=== PATIENT | male | born 1990 | race Caucasian/White ===

== ENCOUNTER 2023-03-15 02:01 | Emergency (ER) | payer OTHER, SELFPAY ==
--- NOTE | 2023-03-15 02:07 | ED_ITS ---
HPI - General Adult General Chief complaint: General Medical Stated complaint: General Malaise/ Nausea Time Seen by Provider: 03/15/23 02:06 Source: patient Mode of arrival: ambulatory Limitations: no limitations History of Present Illness HPI narrative: Patient has a substance abuse been walking about 6 miles in heat felt dizzy exhausted did not drink much water slightly nausea was given 4 mg Zofran by EMS feeling much better now taking p.o. fluid had body aches now feeling much better no confusion or headache patient started on Zoloft and has less appetite did not eat much all day Related Data Previous Rx's Medication Instructions Recorded ondansetron 4 mg disintegrating 4 mg PO Q6-8H PRN nausea and 03/15/23 tablet vomiting #7 tabs Allergies Allergy/AdvReac Type Severity Reaction Status Date / Time sulfamethoxazole Allergy Unknown HIVES Unverified 07/03/20 16:42 [From BACTRIM] trimethoprim [From BACTRIM] Allergy Unknown HIVES Unverified 07/03/20 16:42 Review of Systems Review of Systems: Yes all other systems are reviewed and are negative [facility] Social History Social History Alcohol intake: former Smoked in Last 30 Days: Yes Use of substances other than those prescribed or required for medical reasons: No Advance Directives: No Advance Directives Information Provided: Yes Physical Exam ED Vital Signs: Vital Signs - 24 hr 03/15/23 02:09 Temperature 97.9 F Pulse Rate 78 Respiratory Rate 15 Blood Pressure 114/85 Pulse Oximetry 98 Oxygen Delivery Method Room Air BMI result Body Mass Index 27.2 Appearance: Alert. Oriented X3. No acute distress. Eyes: PERRLA, No Nystagmus ENT: Pharynx normal. Oral Mucosa moist Neck: Normal inspection. Neck supple. CVS: Normal heart rate and rhythm. Pulses normal. Respiratory: No respiratory distress. Equal air entry bilateral, no wheezing/rales/rhonchi Abdomen: Soft and nontender. Bowel sounds are present, no mass palpable, no CVA tenderness Skin: Skin warm and dry. Normal skin color. Normal skin turgor. Extremities: No lower extremity edema. No calf tenderness Neuro: Oriented X 3. No motor deficit. No sensory deficit.No cerebellar signs , cranial nerves II-XII intact Medical Decision Making Medical Decision Making MDM Narrative: Patient with mild heat exhaustion taking p.o. fluids in the ER feeling much better after Zofran. Will discharge patient home Discharge Plan Discharge Clinical Impression: Heat exhaustion Patient Disposition: Home, Self-Care Instructions: Heat Exhaustion (ED) Additional Instructions: Drink plenty of fluids Stay in shaded area Prescriptions: New ondansetron 4 mg tablet,disintegrating 4 mg PO Q6-8H PRN (Reason: nausea and vomiting) Qty: 7 0RF Interventions: ED Discharge Assessment Last Done: 03/15/23 02:33 Discharge Date/Time: 03/15/23 02:37
[2023-03-15 02:09] VITALS: BP 114/85; BP 140/70; PULSE 78; PULSE 80; RESP 15; TEMP 36.6; O2SAT 96; O2SAT 98; BMI 27.2
== END 2023-03-15 02:37 | disposition home or self-care (01) ==
LOC: HO.ED 02:36
PROVIDERS: Emergency Provider Internal Medicine
DX: T67.5XXA Heat exhaustion, unspecified, initial encounter (principal); X58.XXXA Exposure to other specified factors, initial encounter; Y93.01 Activity, walking, marching and hiking; Y92.480 Sidewalk as the place of occurrence of the external cause; Y99.9 Unspecified external cause status
CPT/HCPCS: 99283; 99284

== ENCOUNTER 2025-03-20 13:09 | Emergency (ER) | payer MEDICAID, SELFPAY ==
[2025-03-20 13:30] VITALS: BP 147/91; PULSE 114; RESP 16; TEMP 36.8; O2SAT 97; BMI 24.1
--- NOTE | 2025-03-20 13:32 | ED_ITS ---
HPI - General Adult General Chief complaint: Skin/Abscess/Foreign Body Stated complaint: Infection Above Upper Lip Time Seen by Provider: 03/20/25 14:32 Source: patient Mode of arrival: ambulatory Limitations: no limitations History of Present Illness ED Provider: Kendra Mahajan PA-C HPI narrative: Patient is a 34 year old assigned male at with a history of IVDA presenting to the emergency department today with multiple lesions on his skin. Patient states that he used a cheap razor 3 days ago to shave his legs, arms, face, and lower abdomen and then all of these scabs / lumps appeared on his body. Patient states that he does still use IV drugs with last use today. Patient denies any dizziness, lightheadedness, abdominal pain, nausea, vomiting, fever, chills, blurry vision, double vision, loss of vision, chest pain, difficulty breathing, shortness of breath, back pain, night sweats, pain with urination, increased urinary frequency, increased urinary urgency, blood in his urine or stool, syncope or a near syncopal episode, recent trauma or falls, bowel incontinence, bladder incontinence, or any other complaints at this time. Onset (ago): day(s) (3) Relieving factors: none Exacerbating factors: none Treatments prior to arrival: none Related Data Previous Rx's ?Medication ?Instructions ?Recorded ondansetron 4 mg disintegrating 4 mg PO Q6-8H PRN nausea and 03/15/23 tablet vomiting #7 tabs cephalexin 500 mg capsule 500 mg PO Q6H 7 days #28 caps 03/20/25 doxycycline hyclate 100 mg tablet 100 mg PO BID 7 days #14 tabs 03/20/25 Allergies Allergy/AdvReac Type Severity Reaction Status Date / Time sulfamethoxazole Allergy Unknown HIVES Verified 03/20/25 13:31 [From BACTRIM] trimethoprim [From BACTRIM] Allergy Unknown HIVES Verified 03/20/25 13:31 Review of Systems 2 Constitutional: Constitutional: Reports no additional constitutional complaints, Denies chills, Denies fever(s) and Denies night sweats Eyes: Eyes: Reports no additional eye complaints, Denies blurry vision, Denies change in vision, Denies diplopia, Denies eye discharge, Denies loss of vision and Denies eye pain ENT: Denies dizziness Cardiovascular: Cardiovascular: Reports no additional cardiovascular complaints, Denies chest pain, Denies lightheadedness, Denies Loss of Consciousness and Denies dyspnea Respiratory: Respiratory: Reports no additional respiratory complaints and Denies dyspnea Gastrointestinal: Gastrointestinal: Reports no additional gastrointestinal complaints, Denies abdominal pain, Denies melena, Denies hematochezia, Denies change in bowel habits and Denies change in stool character Genitourinary: Genitourinary: Reports no additional male genitourinary complaints, Denies hematuria, Denies oliguria, Denies difficulty urinating, Denies dysuria, Denies urinary frequency, Denies urinary hesitancy, Denies urinary incontinence and Denies urinary urgency Musculoskeletal: Musculoskeletal: Reports no additional musculoskeletal complaints, Denies numbness and Denies tingling Integumentary/Breasts: Comments: lesions to the face, arms, lower abdomen, and legs Neurologic: Denies dizziness, Denies loss of vision, Denies numbness and Denies tingling Psychiatric: Psychiatric: Reports no additional psychiatric complaints Endocrine: Endocrine: Reports no additional endocrine complaints Hematologic/Lymphatic: Hematologic/Lymphatic: Reports no additional hematologic/lymphatic complaints Allergic/Immunologic: Allergic/Immunologic: Reports no additional allergic/immunologic complaints PMFSH Past Medical History Attestation statement: The following information was validated with the patient. Source: old records reviewed and nursing notes reviewed Social History Social History Alcohol intake: former Advance Directives: No Advance Directives Information Provided: Yes Physical Exam ED Vital Signs: Vital Signs - 24 hr 03/20/25 13:30 03/20/25 15:05 Temperature 98.3 F 98.3 F Pulse Rate 114 H 110 H Respiratory Rate 16 16 Blood Pressure 147/91 H 147/91 H Pulse Oximetry 97 97 Oxygen Delivery Method Room Air Room Air BMI result Body Mass Index 24.1 Const General: cooperative, no acute distress, alert and awake Nutritional Appearance: well nourished Orientation/consciousness: patient oriented x3 HENMT Head: Yes normal to inspection and Yes atraumatic Ears: hearing grossly normal bilaterally and external ears normal General nose exam: Normal external nose present, no nasal discharge noted and no epistaxis Face and sinus: No abrasion and No laceration Mouth: Normal oral and palatal mucosa present, no drooling and no muffled voice Eyes General: appearance normal, both eyes and all related structures Periorbital: periorbital findings normal Eyelids: Yes eyelids normal Conjunctivae: conjunctivae normal Pupils: Equal, round and reactive pupils present EOM: EOMs intact bilaterally Neck Neck: Yes normal visual inspection, Yes full ROM and Yes no lymphadenopathy Resp Effort & Inspection: normal respiratory effort and able to speak in complete sentences Skin Other: Neuro General: patient oriented x3, moves all extremities and CN's II-XI intact bilaterally Cranial nerves: Yes Equal, round and reactive pupils present Cognition (Neuro): normal cognition Extrem General: Yes full ROM and Yes capillary refill normal Psych Appearance: grossly normal Mental Status: mental status grossly normal Affect: normal affect Attitude: cooperative Thought process: Normal thought process present Thought content: Normal thought content present Insight: Good insight present (Psych) Course Course Course Narrative: 03/20/25 [id number] BHARTI Lizarraga This is a Rapid Medical Examination (RME) performed by Marta Theodore PA-C in triage. Full HPI, ROS, assessment and treatment plan per primary provider in the Main ED. Hx: 34 yo M current IVDU (fentanyl) here w/ swelling to upper lip x3 days. reports shaving w/ a cheap razor, noted swelling redness to right upper lip. last injected fentanyl this morning. has not injected into this area. PE/vitals: multiple areas of follicultis to upper lip w/ assoc swelling, crusting. no obvious dental involvement. multiple areas of wounds consistent w/ skin picking to upper and lower extremities. Plan: labs/ inflammatory markers Medications Administered Discontinued Medications Generic Name Dose Route Start Last Admin Trade Name Buck PRN Reason Stop Dose Admin Cephalexin HCl 500 mg 03/20/25 14:43 03/20/25 15:00 Cephalexin 500 Mg Capsule PO 03/20/25 14:44 500 mg ONCE ONE Administration Doxycycline Monohydrate 100 mg 03/20/25 14:43 03/20/25 15:00 Doxycycline Monohydrate 100 Mg Capsule PO 03/20/25 14:44 100 mg ONCE ONE Administration Naloxone HCl 8 mg 03/20/25 14:50 03/20/25 14:59 Naloxone Hcl Nasal Take Home 4 Mg [place] NOSTRILALT 03/20/25 14:51 8 mg ONCE ONE Administration Medical Decision Making Medical Decision Making [facility] Narrative: Patient is a 34 year old assigned male at with a history of IVDA presenting to the emergency department today with multiple lesions on his skin. Patient's physical exam showed numerous lesions concerning for cellulitis and MRSA. Patient's blood work showed an ESR of 34 with a CRP of 7.47. I explained my physical exam findings as well as all test results to the patient. I answered all questions asked by the patient. I explained to the patient that these lesions are concerning for MRSA and given his histroy of IVDU - he should be admitted to the hospital for continued monitoring and IV ABX. The patient stated that he had promised his daughter they were going to go get ice cream tonight and he can't miss it. Patient states that he recently got to be on speaking terms with her again and did not want to mess that up. Patient states that he had plans of getting placed into treatment and he'd like to come back for hospital admission and treatment help after he has this goodbye with his daughter. I explained to the patient that leaving against medical advice could result in , disability, decreased quality of life, and / or sepsis / worsening infection. Patient verbalized understanding of these risks and stated that he would like to sign out against medical advice anyway. Patient was given a dose of PO antibiotics while in the department and antibiotics were sent to his pharmacy. Patient was also supplied with a safe use kit, take home Narcan, and a booklet of resources for treatment centers. I explained to the patient that if he were to change his mind and heed my medical advice of hospital admission for IV ABX - he could call 911 or proceed to his nearest emergency department. Against medical advice document signed by the patient. Differential Diagnosis Differential Diagnoses: The differential diagnosis associated with the presentation includes MRSA Cellulitis Admission/Observation Consideration of admission/observation: Escalation of care including admission/observation considered Patient would have been admitted had he not signed out against medical advice as noted in the MDM Rationale portion of this note. Lab Data [facility] Lab Attestation statement: I reviewed the patient's lab results. My interpretation of these results are in the MDM Rationale portion of this note. 03/20/25 14:09 03/20/25 14:09 Labs: Lab Results 03/20/25 Range/Units 14:09 WBC 8.5 (4.8-10.8) X10*3/uL RBC 4.80 (4.60-5.80) X10*6/uL Hgb 13.1 L (14.0-18.0) g/dl Hct 38.7 L (42.0-52.0) % MCV 80.6 (80.0-98.0) fL MCH 27.3 (27.0-33.0) pg MCHC 33.9 (31.0-36.0) g/dl RDW 12.5 (11.0-16.0) % Plt Count 239 (160-400) X10*3/uL MPV 8.3 L (9.4-12.4) fL Immature Gran % (Auto) 0.4 (0.0-0.4) % Neut % (Auto) 76.3 H (45-73) % Lymph % (Auto) 14.4 L (20-40) % [place] % (Auto) 8.1 (2-11) % Eos % (Auto) 0.4 (0-4) % Baso % (Auto) 0.4 (0-2) % Lymph # (Auto) 1.2 (1.2-4.9) X10*3/uL [place] # (Auto) 0.7 (0.1-1.2) X10*3/uL Eos # (Auto) 0.0 (0.0-0.4) X10*3/uL Baso # (Auto) 0.0 (0.0-0.2) X10*3/uL Abs Immat Gran (auto) 0.03 (0.00-0.03) X10*3/uL Absolute Neuts (auto) 6.5 (2.0-8.3) x10*3/uL Absolute Nucleated RBC 0.000 (0.0-0.012) X10*3/uL Nucleated RBC % (auto) 0.0 (0.0-0.2) /100WBC Smear Tech's Comments VERIFIED ESR 34 H (0-15) MM/HR Sodium 136 (135-145) mmol/L Potassium 3.8 (3.3-5.1) mmol/L Chloride 103 (96-108) mmol/L Carbon Dioxide 26 (22-29) mmol/L Anion Gap 11 L (12-20) BUN 18 H (9-16) mg/dL Creatinine 0.81 (0.5-1.4) mg/dL Estim Creat Clear Calc 131.4 Estimated GFR > 60 Random Glucose 146 H (60-115) mg/dL Calcium 9.3 (8.4-10.2) mg/dL Magnesium 1.9 (1.6-2.6) mg/dL Total Bilirubin 0.5 (0.0-1.0) mg/dL AST 21 (5-37) U/L ALT 10 (0-40) U/L Alkaline Phosphatase 95 (39-117) U/L C-Reactive Protein 7.47 H (< or = 0.50) mg/dL Total Protein 7.8 (6.5-8.0) g/dL Albumin 4.0 (3.5-5.0) g/dL Prescription Management I considered prescription management with: Antibiotic (Patient prescribed antibiotic for probable MRSA cellulitis.) Discharge Plan Discharge Clinical Impression: Cellulitis Patient Disposition: Left Against Medical Advice Instructions: Cellulitis (ED) Additional Instructions: Your face, arms, legs, and abdomen have multiple wounds that are concerning for cellulitis and MRSA infection. Given this, your history of IV drug use, and your clinical presentation - I recommended you be admitted for IV antibiotics. Unfortunately, you have declined hospital admission at this time and are leaving against medical advice. I have provided you with your first dose of oral antibiotics and have prescribed them to your pharmacy of choice. Please re-consider your decision on hospital admission and call 911 or proceed to your closest emergency department. If you decide you want to stop or cut down on how much IV opiates you are using, you can call or walk into our outpatient Addiction Treatment office: [facility] (M-F 9am-5p) [address] [place] [address], [phone] You may have been provided with safer injection?items, please take time to take care of YOU and your health. Use new supplies whenever possible to lessen the chances of infections and other illnesses.? If you need more supplies, please go [employer],? [address] [place], [place] you can call or text to coordinate delivery of safer supplies. You were also provided a list of several treatment providers in the area.? If you experience any worsening symptoms you cannot control please return to the ED or call 911. Please follow up at your next appointment. Things to look out for are fevers, chest pain, shortness of breath, severe pain, dizziness, fainting or any other concerns. Prescriptions: New cephalexin 500 mg capsule 500 mg PO Q6H 7 Days Qty: 28 0RF doxycycline hyclate 100 mg tablet 100 mg PO BID 7 Days Qty: 14 0RF No Action ondansetron 4 mg tablet,disintegrating 4 mg PO Q6-8H PRN (Reason: nausea and vomiting) Qty: 7 0RF Referrals: [facility] Family Medicine [Provider Group] (Call to establish and follow up with a primary care provider. If you already have a primary care provider, please follow up with them.) [facility] Primary Care, [facility] [Provider Group] (Call to establish and follow up with a primary care provider. If you already have a primary care provider, please follow up with them.) [facility] [Provider Group] (Call to establish and follow up with a primary care provider. If you already have a primary care provider, please follow up with them.) [facility] Primary Care, [facility] [Provider Group] (Call to establish and follow up with a primary care provider. If you already have a primary care provider, please follow up with them.) [facility] [Provider Group] (Call to establish and follow up with a primary care provider. If you already have a primary care provider, please follow up with them.) Stand Alone Forms: Against Medical Advice Interventions: ED Discharge Assessment Last Done: 03/20/25 15:05 Discharge Date/Time: 03/20/25 15:05 Print Language: Kazakh
[2025-03-20 14:28] LABS: Basophils Percent Auto 0.4 % (0-2); Eosinophils Percent Auto 0.4 % (0-4); Hematocrit 38.7 % (42.0-52.0); Hemoglobin 13.1 g/dl (14.0-18.0); Imm Gran Abs Auto 0.03 X10*3/uL (0.00-0.03); Imm Gran Pct Auto 0.4 % (0.0-0.4); Lymphocytes Absolute Auto 1.2 X10*3/uL (1.2-4.9); Lymphocytes Percent Auto 14.4 % (20-40); MANUAL DIFF FLAG SCAN; Mean Corpuscular HGB Conc 33.9 g/dl (31.0-36.0); Mean Corpuscular Hemoglobin 27.3 pg (27.0-33.0); Mean Corpuscular Volume 80.6 fL (80.0-98.0); Mean Platelet Volume 8.3 fL (9.4-12.4); Monocytes Absolute Auto 0.7 X10*3/uL (0.1-1.2); Monocytes Percent Auto 8.1 % (2-11); Neutrophils Absolute Auto 6.5 x10*3/uL (2.0-8.3); Neutrophils Percent Auto 76.3 % (45-73); PLT CLUMP 1; Red Cell Distribution Width 12.5 % (11.0-16.0); SCAN SMEAR FLAG 1
[2025-03-20 14:35] LABS: Alanine Aminotransferase 10 U/L (0-40); Alkaline Phosphatase 95 U/L (39-117); Anion Gap 11 (12-20); Aspartate Amino Transferase 21 U/L (5-37); Bilirubin Total 0.5 mg/dL (0.0-1.0); Blood Urea Nitrogen 18 mg/dL (9-16); C Reactive Protein 7.47 mg/dL (< or = 0.50); Calcium 9.3 mg/dL (8.4-10.2); Carbon Dioxide 26 mmol/L (22-29); Chloride 103 mmol/L (96-108); Creatinine Clr Calc Pharmacy 131.4; Estimated Glomerular Filt Rate > 60; Glucose Random 146 mg/dL (60-115); Magnesium 1.9 mg/dL (1.6-2.6); Potassium 3.8 mmol/L (3.3-5.1); Sodium 136 mmol/L (135-145); Total Protein 7.8 g/dL (6.5-8.0)
[2025-03-20 14:44] LABS: Platelet Count 239 X10*3/uL (160-400); SLIDE REVIEW VERIFIED; White Blood Count 8.5 X10*3/uL (4.8-10.8)
[2025-03-20 14:54] LABS: Erythrocyte Sedimentation Rate 34 MM/HR (0-15)
[2025-03-20] MEDS: Naloxone HCl Nasal TAKE HOME 4 MG SPRAY 8 MG NOSTRILALT (14:59)
[2025-03-20] MEDS: cephALEXin 500 MG CAPSULE PO (15:00)
[2025-03-20] MEDS: Doxycycline Monohydrate 100 MG CAPSULE PO (15:00)
[2025-03-20 15:05] VITALS: BP 147/91; PULSE 110; RESP 16; TEMP 36.8; O2SAT 97
== END 2025-03-20 15:05 | disposition left against medical advice (07) ==
PROVIDERS: Physician Assistant Medical; Emergency Provider Emergency Medicine
DX: L98.9 Disorder of the skin and subcutaneous tissue, unspecified (principal); K13.0 Diseases of lips; L03.119 Cellulitis of unspecified part of limb; L03.116 Cellulitis of left lower limb; L03.115 Cellulitis of right lower limb; L03.311 Cellulitis of abdominal wall; Z53.29 Procedure and treatment not carried out because of patient's decision for other reasons
CPT/HCPCS: 36415; 80053; 83735; 85025; 85652; 86140; 99282; 99283

== ENCOUNTER 2025-03-20 23:06 | Inpatient (IN) | payer MEDICAID, SELFPAY ==
[2025-03-20 23:10] VITALS: BP 139/93; PULSE 93; RESP 20; TEMP 36.1; O2SAT 98; BMI 55.4
--- NOTE | 2025-03-21 03:34 | ED_ITS ---
HPI - General Adult General Chief complaint: Skin/Abscess/Foreign Body Stated complaint: left ama earlier and want's to be seen again. Time Seen by Provider: 03/21/25 02:00 Source: patient Mode of arrival: ambulatory Limitations: no limitations History of Present Illness ED Provider: Dr. Tori Lawrence HPI narrative: Patient comes to the emergency room requesting admission. Patient states that earlier today he was seen here, the previous provider told him that he need to be admitted, patient states that he had to take care of his young children at home and then came back to the emergency room as requested per previous provider. Patient denies any fever or chills. Patient admits that he injects heroin. Related Data Previous Rx's ?Medication ?Instructions ?Recorded ondansetron 4 mg disintegrating 4 mg PO Q6-8H PRN nausea and 03/15/23 tablet vomiting #7 tabs cephalexin 500 mg capsule 500 mg PO Q6H 7 days #28 caps 03/20/25 doxycycline hyclate 100 mg tablet 100 mg PO BID 7 days #14 tabs 03/20/25 Allergies Allergy/AdvReac Type Severity Reaction Status Date / Time sulfamethoxazole Allergy Unknown HIVES Verified 03/20/25 23:13 [From BACTRIM] trimethoprim [From BACTRIM] Allergy Unknown HIVES Verified 03/20/25 23:13 Review of Systems Review of Systems: Constitutional : No Weight loss, No Fever, No Chills, No Night Sweats, No Fatigue, No Malaise ENT/Mouth : No Hearing loss, No Ear Pain, No Nasal Congestion, No Sinus Pain, No Hoarseness, No sore throat, No Rhinorrhea, No Swallowing Difficulty Eyes: No Eye Pain, No Swelling, No Redness, No Foreign Body, No Discharge, No Vision Changes Cardiovascular : No Chest Pain, No SOB, No Dyspnea on Exertion, No Orthopnea, No Edema, No Palpitations Respiratory : No Cough, No Sputum, No Wheezing, No Smoke Exposure, No Dyspnea Gastrointestinal : No Nausea, No Vomiting, No Diarrhea, No Constipation, No abdominal Pain, No Hematochezia, No Melena Genitourinary : no irregular bleeding, No Dysuria, No Urinary Frequency, No Hematuria, No Urinary Incontinence, No Urgency, No Flank Pain, No Urinary Flow Changes, No Hesitancy Musculoskeletal : No joint pain, No Myalgias, No Joint Swelling Skin : Complaining of cellulitis on the left side of the face, chronic wounds in bilateral upper extremities from needle site injections Neuro : No Weakness, No Numbness, No Paresthesias, No Loss of Consciousness, No Dizziness, No Headache Psych : No Anxiety/Panic, No Depression, No SI/HI/AH/VH, No Social Issues, Heme/Lymph: No Bruising, No Bleeding,No Lymphadenopathy Endocrine : No Polyuria, No Polydipsia, No Temperature Intolerance [facility] Past Medical History Medical History (Updated 03/21/25 @ 03:37 by Tori Lawrence MD) Polysubstance abuse Social History Social History Alcohol intake: former Advance Directives: No Advance Directives Information Provided: Yes Do you have a plan to hurt others: No Plan Physical Exam ED Vital Signs: Vital Signs - 24 hr 03/20/25 23:10 Temperature 97.0 F Pulse Rate 93 Respiratory Rate 20 Blood Pressure 139/93 H Pulse Oximetry 98 Oxygen Delivery Method Room Air BMI result Body Mass Index 55.4 Const Other: Appearance: Alert. Oriented X3. No acute distress. Eyes: Pupils equal, round and reactive to light. ENT: Pharynx normal. Neck: Normal inspection. Neck supple. No lymph nodes noted. No crepitus CVS: Normal heart rate and rhythm. Pulses normal. Normal S1 and S2 Respiratory: No respiratory distress. Breath sounds normal. No Wheezing. No rales Abdomen: Soft and nontender. No rigidity. No distention. Skin: Patient has cellulitis in the face, see pictures from previous note from earlier today. Patient has bilateral needle track santos in both arms. Do not seem infected. Extremities: No lower extremity edema. No Lacerations. No Rash Neuro: Oriented X 3. No motor deficit. No sensory deficit. Moving all extremities. No slurred speech. CN 2 through 12 grossly intact Psych: calm, cooperative, normal affect Medical Decision Making Medical Decision Making MDM Narrative: At this time, it would not be of any benefit to repeat labs. It is borderline whether the patient should be admitted or not. Patient has been waiting 5 hours to be admitted. I discussed the patient with Dr. Odell, we will admit for IV antibiotics. Differential Diagnosis Differential Diagnoses: The differential diagnosis associated with the p resentation includes (Cellulitis, impetigo) Critical Care Time Critical Care Time Critical Care Time: Yes Total Critical Care Time: 45 Attestation: I have personally provided critical care time. Time includes review of lab data, radiology results, discussion with consultants, and monitoring for potential decompensation. Intervention performed as documented. Discharge Plan Discharge Clinical Impression: Cellulitis, Impetigo Patient Disposition: Admitted As Inpatient Prescriptions: No Action ondansetron 4 mg tablet,disintegrating 4 mg PO Q6-8H PRN (Reason: nausea and vomiting) Qty: 7 0RF cephalexin 500 mg capsule 500 mg PO Q6H 7 Days Qty: 28 0RF doxycycline hyclate 100 mg tablet 100 mg PO BID 7 Days Qty: 14 0RF Print Language: Iranian
[2025-03-21 03:37] VITALS: BMI 24.6
--- NOTE | 2025-03-21 03:39 | PM.IMHP ---
History of Present Illness Date of Service: 03/21/25 Attending physician on admission: Remy Odell Chief Complaint: folliculitis, cellulitis Patient is a 34-year-old male with a past medical history significant for IV drug use, who presented to the ED again after leaving yesterday against medical advice for cellulitis and possible abscess of the left upper lip. The patient reports recent IV drug use, last use 16:00 yesterday, and would like to talk to addiction Medicine team regarding detox/rehab. He reports scattered skin lesions with intermittent drainage and erythema for quite some time, the upper lip is somewhat new, and has had some drainage which occurred last night. the drainage was thin with some purulent white drainage as well. He reports some relief of pain going from an 8/10 to a 6/10 after the drainage occurred. He has intermittent subjective fevers and chills. He denies any history of MRSA. Review of Systems Constitutional: Constitutional: Reports chills, Denies fatigue and Reports fever(s) Eyes: Eyes: Denies change in vision and Denies photophobia ENT: Denies nasal congestion, Denies nasal discharge and Denies sore throat Cardiovascular: Cardiovascular: Denies chest pain, Denies syncope, Denies rapid heart rate, Denies leg edema, Denies lightheadedness and Denies dyspnea Respiratory: Respiratory: Denies cough, Denies dyspnea and Denies wheezing Gastrointestinal: Gastrointestinal: Denies abdominal pain, Denies diarrhea, Reports nausea and Denies vomiting Genitourinary: Genitourinary: Denies oliguria, Denies urinary frequency and Denies urinary urgency Integumentary/Breasts: Skin/Breast: Reports as per HPI Neurologic: Denies confusion and Denies syncope Psychiatric: Psychiatric: Denies confusion Endocrine: Endocrine: Denies fatigue Hematologic/Lymphatic: Hematologic/Lymphatic: Denies easy bleeding and Denies easy bruising Allergic/Immunologic: Allergic/Immunologic: Denies wheezing [facility] Medical History Polysubstance abuse Functional capacity: independent ambulation Social History Alcohol intake: former Advance Directives: No Advance Directives Information Provided: Yes Do you have a plan to hurt others: No Plan Narrative: smoked 1/2 ppd. no etoh. +IVDU, last used 4pm yesterday. Meds Allergies Allergy/AdvReac Type Severity Reaction Status Date / Time sulfamethoxazole Allergy Unknown HIVES Verified 03/20/25 23:13 [From BACTRIM] trimethoprim [From BACTRIM] Allergy Unknown HIVES Verified 03/20/25 23:13 Physical Exam Vital Signs and Narrative: Vital Signs: Last Vital Signs Temp 97.0 F 03/20/25 23:10 Pulse 93 03/20/25 23:10 Resp 20 03/20/25 23:10 BP 139/93 H 03/20/25 23:10 Pulse Ox 98 03/20/25 23:10 O2 Del Method Room Air 03/20/25 23:10 BMI result Body Mass Index 24.6 General: AOx3, no acute distress Resp: CTA bilaterally CVS: S1, S2, RRR GI: +BS, NT, no distention Skin: Warm, dry. scatered lesions on upper stremties, erythematous but no warmth or active drainage. scattered lesions on upper lip with erythema and edema left side. no active drainage currently. see ED note from yesterday for photos. Neuro: Cranial nerves II-XII grossly intact bilaterally. Motor grossly intact bilaterally Extremities: No LE edema Psych: Appropriate affect Const: General: No confusion Orientation/consciousness: No confusion Eyes: Direct Ophthalmoscopy: No photophobia Neuro: General: No confusion Results Labs 03/21/25 04:02 03/21/25 04:03 Assessment and Plan (1) Cellulitis: Status: Acute (2) Abscess: Status: Acute (3) IVDU (intravenous drug user): Status: Acute (4) Tobacco use disorder: Status: Acute Plan Patient is a 34-year-old male with a past medical history significant for IV drug use, who presented to the ED again after leaving yesterday against medical advice for cellulitis and possible abscess of the left upper lip. cellulitis/abscess face - WBC 6.8, vital stable, lactic acid and blood cultures x2 pending, no sepsis - ESR 49, CRP 9.42 - pt hard stick and ED working on US guided access for IV - doxycycline 100mg BID - monitor CBC and BMP IVDU - addiction med consult tobacco use disorder - smoking cessation encouraged - nicotine patch full code VTE prophy: lovenox Pt with cellulitis/abscess upper lip, requiring admission for observation for IV abx and addiction med consult. Quality Stroke Does the patient have a stroke diagnosis?: No VTE Prior VTE?: No VTE Risk Level:: Medical - moderate - high VTE Device Contraindication: Treatment Not Indicated VTE Drug Contraindication: N/A - Med Ordered
[2025-03-21 04:23] LABS: Hemoglobin 12.8 g/dl (14.0-18.0); Imm Gran Abs Auto 0.02 X10*3/uL (0.00-0.03); Imm Gran Pct Auto 0.3 % (0.0-0.4); MANUAL DIFF FLAG SCAN; Mean Platelet Volume 8.7 fL (9.4-12.4); PLT CLUMP 1; SCAN SMEAR FLAG 1
[2025-03-21 04:24] LABS: Basophils Percent Auto 0.3 % (0-2); Eosinophils Absolute Auto 0.1 X10*3/uL (0.0-0.4); Eosinophils Percent Auto 2.1 % (0-4); Hematocrit 38.2 % (42.0-52.0); Lymphocytes Absolute Auto 1.4 X10*3/uL (1.2-4.9); Lymphocytes Percent Auto 20.4 % (20-40); Mean Corpuscular HGB Conc 33.5 g/dl (31.0-36.0); Mean Corpuscular Hemoglobin 26.9 pg (27.0-33.0); Mean Corpuscular Volume 80.4 fL (80.0-98.0); Monocytes Absolute Auto 0.7 X10*3/uL (0.1-1.2); Monocytes Percent Auto 10.1 % (2-11); Neutrophils Absolute Auto 4.5 x10*3/uL (2.0-8.3); Neutrophils Percent Auto 66.8 % (45-73); Red Blood Count 4.75 X10*6/uL (4.60-5.80); Red Cell Distribution Width 12.5 % (11.0-16.0)
[2025-03-21 04:25] LABS: Platelet Count 284 X10*3/uL (160-400); White Blood Count 6.8 X10*3/uL (4.8-10.8)
[2025-03-21 04:38] LABS: Alanine Aminotransferase 12 U/L (0-40); Alkaline Phosphatase 100 U/L (39-117); Anion Gap 15 (12-20); Aspartate Amino Transferase 32 U/L (5-37); Bilirubin Total 0.7 mg/dL (0.0-1.0); Blood Urea Nitrogen 20 mg/dL (9-16); C Reactive Protein 9.42 mg/dL (< or = 0.50); Calcium 9.6 mg/dL (8.4-10.2); Carbon Dioxide 24 mmol/L (22-29); Chloride 102 mmol/L (96-108); Creatinine Clr Calc Pharmacy 163.7; Estimated Glomerular Filt Rate > 60; Glucose Random 113 mg/dL (60-115); Sodium 137 mmol/L (135-145)
[2025-03-21 04:40] LABS: SLIDE REVIEW VERIFIED
[2025-03-21 04:49] LABS: Erythrocyte Sedimentation Rate 49 MM/HR (0-15)
[2025-03-21 05:18] VITALS: BP 100/54; PULSE 67; RESP 16; TEMP 36.6; O2SAT 97
[2025-03-21 06:34] LABS: Lactic Acid 0.6 mmol/L (0.5-2.0)
[2025-03-21] MEDS: oxyCODONE HCl Immed Release 5 MG TABLET PO (07:03)
[2025-03-21] MEDS: Doxycycline Hyclate 100 MG in 0.9 % Sodium Chloride 250 ML 166.67 MG IV ×2 (07:03→18:37)
[2025-03-21] MEDS: Enoxaparin Sodium 40 MG/0.4 ML SYRINGE SUBCUT (10:50)
[2025-03-21] MEDS: 0.9 % Sodium Chloride Flush 3 ML SYRINGE IVFLUSH ×2 (10:50→22:32)
--- NOTE | 2025-03-21 11:53 | PHA.MEDREC ---
Pharmacy Consult ? Medication Reconciliation Pharmacy has completed the medication reconciliation. Per patient, he does not take any medication at home.
--- NOTE | 2025-03-21 12:02 | PC.NURSE ---
Assumed care of this patient at 1100. patient resting quietly on stretcher at this time. Woken up for vitals, VSS. Patient requesting food, breakfast tray timbo.
--- NOTE | 2025-03-21 12:44 | HO.ADDICT_ITS ---
History of Present Illness Date of Service: 03/21/2025 Chief Complaint: Cellulitis Reason for Consult: OUD HPI Narrative: Patient is a 34 year old male medically admitted with cellulitis At time of admission patient reported IVDU Patient seen in room 17 of main ED. He is sleeping, but wakes easily to voice He reports long history of substance use Currently using 3-4 bundles of heroin/fentanyl daily IV Reports history of treatment with [facility]--both methadone and buprenorphine. It has been over a year for since he was engaged in treatment for OUD. Denies withdrawal sx at time of assessment Reporting that he would like to start medications and continue treatment from here once medically cleared. Labs reviewed Medical Evaluation Reviewed: Yes Review of Systems Constitutional: Reports as per HPI, Denies body ache(s), Denies chills, Reports difficulty sleeping, Denies malaise and Reports poor appetite Gastrointestinal: Denies loose stools and Denies nausea Musculoskeletal: Denies myalgias Psychiatric: Denies anxiety Diagnostics Vital Signs (24Hr): Vital Signs - 24 hr 03/20/25 23:10 03/21/25 05:18 Temperature 97.0 F 97.8 F Pulse Rate 93 67 Respiratory Rate 20 16 Blood Pressure 139/93 H 100/54 L Pulse Oximetry 98 97 Oxygen Delivery Method Room Air Room Air BMI result Body Mass Index 24.6 Labs 03/21/25 04:02 03/21/25 04:03 Labs: Laboratory Results - last 48 hr 03/21/25 03/21/25 03/21/25 04:02 04:03 04:12 WBC 6.8 RBC 4.75 Hgb 12.8 L Hct 38.2 L MCV 80.4 MCH 26.9 L MCHC 33.5 RDW 12.5 Plt Count 284 MPV 8.7 L Immature Gran % (Auto) 0.3 Neut % (Auto) 66.8 Lymph % (Auto) 20.4 [place] % (Auto) 10.1 Eos % (Auto) 2.1 Baso % (Auto) 0.3 Lymph # (Auto) 1.4 [place] # (Auto) 0.7 Eos # (Auto) 0.1 Baso # (Auto) 0.0 Abs Immat Gran (auto) 0.02 Absolute Neuts (auto) 4.5 Absolute Nucleated RBC 0.000 Nucleated RBC % (auto) 0.0 Smear Tech's Comments VERIFIED ESR 49 H Sodium 137 Potassium 4.0 Chloride 102 Carbon Dioxide 24 Anion Gap 15 BUN 20 H Creatinine 0.65 Estim Creat Clear Calc 163.7 Estimated GFR > 60 Random Glucose 113 Lactic Acid Calcium 9.6 Total Bilirubin 0.7 AST 32 ALT 12 Alkaline Phosphatase 100 C-Reactive Protein 9.42 H Total Protein 8.0 Albumin 4.0 03/21/25 06:10 WBC RBC Hgb Hct MCV MCH MCHC RDW Plt Count MPV Immature Gran % (Auto) Neut % (Auto) Lymph % (Auto) [place] % (Auto) Eos % (Auto) Baso % (Auto) Lymph # (Auto) [place] # (Auto) Eos # (Auto) Baso # (Auto) Abs Immat Gran (auto) Absolute Neuts (auto) Absolute Nucleated RBC Nucleated RBC % (auto) Smear Tech's Comments ESR Sodium Potassium Chloride Carbon Dioxide Anion Gap BUN Creatinine Estim Creat Clear Calc Estimated GFR Random Glucose Lactic Acid 0.6 Calcium Total Bilirubin AST ALT Alkaline Phosphatase C-Reactive Protein Total Protein Albumin Mental Status Exam Mental Status Exam Patient Appearance: Unkempt (numerous injection santos bilateral forearms and hands ) Level of Consciousness: Awake and Appropriate Patient Behavior: Appropriate and Cooperative Mood Description: Calm Affect Description: Calm and Blunted Speech Pattern: Clear Thought Process: Intact Thought Content: positive for Intact Judgement: Good Medications Medications Current Medications Acetaminophen (Acetaminophen 325 Mg Tablet) 975 mg PO Q6H PRN PRN Reason: Pain, Mild 1-3,fever,headache Calcium Carbonate (Calcium Carbonate 750 Mg Tab.Chew) 750 mg PO Q4H PRN PRN Reason: Heartburn Enoxaparin Sodium (Enoxaparin Sodium 40 Mg/0.4 Ml Syringe) 40 mg SUBCUT Q24H [facility] Last Admin: 03/21/25 10:50 Dose: 40 mg Doxycycline Hyclate 100 mg/ (Sodium Chloride) 250 mls @ 166.67 mls/hr IV Q12H [facility] Last Infusion: 03/21/25 09:04 Dose: Infused Magnesium Hydroxide (Milk Of Magnesia 30 Ml Oral.Susp) 30 ml PO DAILY PRN PRN Reason: Constipation Melatonin (Melatonin 3 Mg Tablet) 6 mg PO BEDTIME PRN PRN Reason: Insomnia Morphine Sulfate (Morphine Sulfate 4 Mg/Ml Cartridge) 2 mg IVPUSH Q4H PRN; Protocol PRN Reason: Pain, Severe (Pain Scale 7-10) Ondansetron HCl (Ondansetron Hcl 4 Mg/2 Ml Vial) 4 mg IVPUSH Q8H PRN PRN Reason: Nausea and Vomiting Oxycodone HCl (Oxycodone Hcl Immed Release 5 Mg Tablet) 5 mg PO Q6H PRN PRN Reason: Pain, Moderate(Pain Scale 4-6) Last Admin: 03/21/25 07:03 Dose: 5 mg Sodium Chloride (0.9 % Sodium Chloride Flush 3 Ml Syringe) 3 ml IVFLUSH QSHIFT JOSE Last Admin: 03/21/25 10:50 Dose: 3 ml Allergies Allergies Allergy/AdvReac Type Severity Reaction Status Date / Time sulfamethoxazole Allergy Unknown HIVES Verified 03/20/25 23:13 [From BACTRIM] trimethoprim [From BACTRIM] Allergy Unknown HIVES Verified 03/20/25 23:13 Assessment & Plan Assessment & Plan (1) Opioid use disorder, severe, dependence: Status: Acute Code(s): F11.20 - Opioid dependence, uncomplicated Assessment and Plan: * methadone 30mg X1 * methadone 10mg PRN q4H max 2 doses * will follow up in AM --licensed nursing assistant to obtain additional substance use history and start referral to OTP Total time managing care of this patient today __30__ minutes. PMFSH Past Medical History Medical History Polysubstance abuse Social History Social History Alcohol intake: former Patient Tobacco Use Status: Current everyday Tobacco user Smoked in Last 30 Days: Yes Use of substances other than those prescribed or required for medical reasons: Yes Substance Use Type: IV Drugs and Marijuana Substance Use Type Other:: fentanyl Substance Use Frequency: Daily Last Used Substance: Hours (ago) Advance Directives: No Advance Directives Information Provided: Yes Do you have a plan to hurt others: No Plan Nutrition Risks: No Nutritional Risk
[2025-03-21] MEDS: methADONE HCl 20 MG/2 ML ORAL.CONC 30 MG PO (13:41)
[2025-03-21 14:14] VITALS: BP 109/64; PULSE 60; RESP 14; TEMP 36.4; O2SAT 98
--- NOTE | 2025-03-21 15:58 | PC.NURSE ---
patient brought over to overflow bed 1, currently sleeping, vitals previously stable, call harvey within reach, plan of care ongoing
--- NOTE | 2025-03-21 17:01 | PM.EVENT ---
Event Note Date of Service: 03/21/25 Event Note: seen and examined this morning follow up for multiple skin wounds, lip swelling cellulitis/abscess face WBC 6.8, vital stable, lactic acid and blood cultures x2 pending, no sepsis ESR 49, CRP 9.42 lip actively draining; multiple skin lesions of b/l extremities - do not appear to need drainage at this time doxycycline 100mg BID monitor CBC and BMP blood cultures pending IVDU addiction med consult tobacco use disorder smoking cessation encouraged nicotine patch full code VTE prophy: luanax Time Spent With Patient Time: Total time managing care of this patient today ____ minutes.
[2025-03-21 17:15] VITALS: BMI 24.1
[2025-03-21 18:31] VITALS: BP 117/67; PULSE 55; RESP 18; TEMP 36.4; O2SAT 98
[2025-03-21 20:00] VITALS: BP 141/66; PULSE 64; RESP 16; TEMP 37.1; O2SAT 99
[2025-03-21] MEDS: Acetaminophen 325 MG TABLET 975 MG PO (22:32)
[2025-03-22 03:57] VITALS: BP 115/67; PULSE 53; RESP 16; TEMP 36.7; O2SAT 99
[2025-03-22 05:19] LABS: HIV Num 1 2.96 S/CO (0.00-0.99)
[2025-03-22 05:24] LABS: ~HepC Num1 13.29 S/CO (0.00-0.79); ~Hepatitis C Antibody Reactive (Nonreactive)
[2025-03-22 06:16] LABS: HIV AB/AG Nonreactive (Nonreactive); HIV Num 2 0.06 S/CO; HIV Num 3 0.05 S/CO
[2025-03-22] MEDS: Doxycycline Hyclate 100 MG in 0.9 % Sodium Chloride 250 ML 166.67 MG IV (06:16)
[2025-03-22 07:14] VITALS: BP 124/71; PULSE 63; RESP 20; TEMP 36.6; O2SAT 100
[2025-03-22] MEDS: methADONE HCl 20 MG/2 ML ORAL.CONC 45 MG PO (09:40)
[2025-03-22] MEDS: Enoxaparin Sodium 40 MG/0.4 ML SYRINGE SUBCUT (09:43)
--- NOTE | 2025-03-22 10:51 | PC.NURSE ---
Patient's IV not flushing and Doxycycline not infusing. ship mate attempted to place new IV with no access found. Provider notified
--- NOTE | 2025-03-22 11:32 | PM.DS ---
DS: Providers Provider Date of Service: 03/22/25 Date of admission: 03/21/25 03:40 Date of discharge: 03/22/25 Primary care physician: Unknown Physician Consults: 03/21/25 03:36 Addiction Medicine Provider Routine Consulting Provider: Addiction Covering Reason for consultation: IVDU Has provider been notified: No 03/21/25 23:08 Consult to Wound Care Routine Reason for consultation: Multiple scabs, s/p abscess drainage to upper lip 03/22/25 08:24 Inpt - Recovery Team Routine Comment: Reason for consultation: ROXANE/BH eval OUD Attending physician on discharge: Nam Pratt Discharging clinician: Floresita Briseno DS: Diagnosis Discharge Diagnosis (1) Opioid use disorder, severe, dependence: Status: Acute DS: Summary Hospital Course Hospital Course: From H&P on the day of admission Patient is a 34-year-old male with a past medical history significant for IV drug use, who presented to the ED again after leaving yesterday against medical advice for cellulitis and possible abscess of the left upper lip. The patient reports recent IV drug use, last use 16:00 yesterday, and would like to talk to addiction Medicine team regarding detox/rehab. He reports scattered skin lesions with intermittent drainage and erythema for quite some time, the upper lip is somewhat new, and has had some drainage which occurred last night. the drainage was thin with some purulent white drainage as well. He reports some relief of pain going from an 8/10 to a 6/10 after the drainage occurred. He has intermittent subjective fevers and chills. He denies any history of MRSA. Probable Impetigo No evidence of sepsis. No leukocytosis or fever. Lip swelling significantly improved, erythema resolved; ongoing crusting/lesions of top lip c/w impetigo. will continue doxycycline and also discharge with mupirocin. Multiple scabbed lesions of bilateral upper greater than lower extremities. ?injection sites, although patient denies. Do not appear infected at this time, no abscess requiring drainage at this time. IVDU seen by addiction medicine, started on methadone. No open detox but it at this time. Patient has resources and we will continue to Call facilities tobacco use disorder smoking cessation encouraged. nicotine patch Time Attestation Discharge Coordination Time (in mins): 32 Quality: Safe Use of Opioids Does Pt have an Active Cancer Diagnosis on the Problem List?: No Quality: Stroke Does the patient have a stroke diagnosis?: No Physical Exam Vital Signs: Vital Signs: Last Vital Signs Temp 97.8 F 03/22/25 07:14 Pulse 63 03/22/25 07:14 Resp 20 03/22/25 07:14 BP 124/71 03/22/25 07:14 Pulse Ox 100 03/22/25 07:14 O2 Del Method Room Air 03/22/25 07:14 BMI result Body Mass Index 24.1 Const: General: cooperative, comfortable, no acute distress, alert and awake Nutritional Appearance: average body habitus Orientation/consciousness: patient oriented x3 Resp: Effort & Inspection: normal respiratory effort, able to speak in complete sentences, no respiratory distress and no use of accessory muscles Auscultation: clear to auscultation bilaterally Cardio: Rate: regular rate GI: Inspection: No distended Palpation (GI): Soft to palpation and nontender Skin: Other: dry scabs b/l upper extremities Neuro: General: patient oriented x3, moves all extremities and CN's II-XI intact bilaterally DS: Data Data Completed and Pending Labs on day of discharge: Laboratory Results - last 24 hr 03/21/25 15:41 Hepatitis C Ab (EIA) Reactive H HIV 1&2 Ab/P24 Ag 4thGn Nonreactive Preliminary micro results at discharge 03/21/25 06:11 Blood Culture - Preliminary Blood - Venous No growth after 24 hours. 03/21/25 06:11 Blood Culture - Preliminary Blood - Venous No growth after 24 hours. Discharge Plan Discharge Anticipated Discharge Date/Time: 03/22/25 16:03 Patient Disposition: Home, Self-Care Discharge Diagnosis: multiple skin lesions impetigo IVDU Referrals: [facility] [Provider Group] - 1 Day (Go to [facility] tomorrow for next methadone dose. Bring last dose letter. Come to ED if you can not get dosed at the clinic. Also continue to call Detox beds daily.) Physician,Unknown J [Primary Care Provider] - 1 Week Discharge Medications: New doxycycline monohydrate 100 mg Capsule 100 mg PO Q12H 7 Days Qty: 14 0RF mupirocin 2 % Ointment 1 appl topical TID Qty: 22 0RF Protocol: Apply to: Apply to: upper lip nicotine 14 mg/24 hr patch 24 hour 1 patch transdermal Q24H Qty: 14 0RF Discharge Orders: Discharge Order (Routine); Ordered 03/22/25 Ordered By: Floresita Briseno Activity on Discharge: As tolerated Stand Alone Forms: Patient Portal Discharge page Print Language: [place] Activity Restrictions/Additional Instructions: Topical Wound Care Recommendations: Face / Maxilla area - Routine cleansing with soap and water, pat dry. Apply Mupirocin per provider orders. Wash hands after touching and avoid touching face. Care Plan Goals: See below Health Concerns: Impetigo multiple skin wounds, no abscess or infection IVDU Plan of Treatment: complete course of oral antibiotics as prescribed Apply topical antibiotic 3 times daily to upper lip for 5 days you have been started on methadone, continue outpatient referrals given for outpatient detox Assessment: See discharge summary
--- NOTE | 2025-03-22 12:19 | HO.WOUND ---
Wound Consult: Initial 34yr old?male admitted to [facility] [place] on 03/21/25 - See progress notes and H&P for detailed history.? Wound consult placed for various scabs noted throughout body.? Patient agreeable to assessment and photo documentation.? 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 The maxilla area is suspected to be Impetigo - provider will order topical Mupriocin and oral ABX for treatment. No other treatment needed - remind patient frequent hand washing and to not touch the area. May wash with routine cleaning with soap and water. The arms are noted for dry stable scabs in round shapes - unclear etiology - there is erythema noted around some of the sites there is not fluctuance or induration noted around any sites - there is not area observed to need surgical interventions. the sites would likely be hard to treat given the diffuse nature patient did not want dressing in place to cover arms. Ok to leave ASSISTANCE SPECIALIST as long as not drainage may treat individually is drainage is noted in the future. The left knee was assessed for a dry stable scab no topical intervention needed. Maxilla Area Left Arm Right Arm Right Leg Left Knee and Leg No topical recommendations needed for Left knee or bilateral arms at this tie. Face / Maxilla area - Routine cleansing with soap and water, pat dry. Apply Mupirocin per provider orders. Wash hands after touching and avoid touching face. Re-consult wound care Nurse for wound deterioration or wound changes.
[2025-03-22] MEDS: Mupirocin 2 % Oint 22 GM TUBE 1 APPL TOPICAL (12:47)
--- NOTE | 2025-03-22 14:14 | MHC.CM.PN ---
PT REPORTS HE HAS BEEN HOMELESS FOR A COUPLE MONTHS AND STAYING WITH FRIENDS ON AND OFF SINCE THEN HE IS NOT CONNECTED TO ANY COMMUNITY SERVICES AND USES NO DME HE DECLINES A HCP AND HAS NO PCP PT REPORTS HE IS INTERESTED IN GOING TO A PROGRAM FROM HERE AND SAYS HE HAS ALREADY SPOKEN TO THE [employer]
[2025-03-22 15:27] VITALS: BP 124/76; PULSE 73; RESP 18; TEMP 36.3; O2SAT 100
[2025-03-26 13:44] LABS: HCV Log PCR <1.18 NOT DETECTED Log IU/mL (NOT DETECTED); HepC Viral Load <15 NOT DETECTED IU/mL (NOT DETECTED)
== END 2025-03-22 16:46 | disposition home or self-care (01) | DRG 383 ==
LOC: HO.ED 03-21 03:37 → HO.EDOVER 03-21 06:45 → HO.IMC 03-21 17:12
PROVIDERS: Nurse Practitioner Psychiatric/Mental Health; Admitting Provider Physician Assistant; Emergency Provider Emergency Medicine; Visit Provider Physician Assistant Medical
DX: L03.211 Cellulitis of face (principal); F11.20 Opioid dependence, uncomplicated; F17.210 Nicotine dependence, cigarettes, uncomplicated; L01.00 Impetigo, unspecified; Z71.6 Tobacco abuse counseling; Z79.899 Other long term (current) drug therapy
CPT/HCPCS: 36415; 80053; 83605; 85025; 85652; 86140; 86803; 87040; 87389; 87522; 99285; J1271; J1650; S9485

== ENCOUNTER → 2025-03-21 03:40 | Outpatient (BNV) | payer MEDICAID, SELFPAY | PROVIDERS: Admitting Provider Physician Assistant; Emergency Provider Emergency Medicine; Visit Provider Physician Assistant Medical | DX: F11.20 Opioid dependence, uncomplicated (principal) | CPT/HCPCS: 99222; 99239; 99499 ==

== ENCOUNTER → 2025-03-21 03:40 | Outpatient (BNV) | payer OTHER, SELFPAY | PROVIDERS: Admitting Provider Physician Assistant; Emergency Provider Emergency Medicine; Visit Provider Nurse Practitioner Psychiatric/Mental Health | DX: F11.20 Opioid dependence, uncomplicated (principal) | CPT/HCPCS: 99232 ==